=== PATIENT | female | born 1960 | race Caucasian/White ===

== ENCOUNTER 2017-01-29 12:40 | Emergency (ER) | payer OTHER ==
[~2017-01-29] VITALS: Ht 157.5 cm; Wt 132.9 kg
[~2017-01-29 12:40] MED LIST: ADVAIR 250/501 DISK IH; ADVIL,NUPRIN,M200 MG PO; ALBUTEROL2.5 MG/3 M IH; ATARAX,VISTARIL25 MG PO; BENZONATATE100 MG PO; CYMBALTA20 MG PO; DOXYCYCLINE HY100 M3 PO; METHADOSE10 MG/1 ML PO; MUCINEX600 MG PO; PREDNISONE10 MG PO; PROMETHAZINE HC25 M1 PO; SPIRIVA RESPIMAT4 GM IH; VENTOLIN HFA18 GM IH
[2017-01-29] MEDS ORDERED: BENADRYL25 MG PO (13:08)
[2017-01-29] MEDS ORDERED: SERTRALINE HCL100 MG PO (13:09)
[2017-01-29 13:51] LABS: CHLORIDE 96 mEq/L (99-109); POTASSIUM 4.3 mEq/L (3.7-5.4); SODIUM 143 mEq/L (136-147)
[2017-01-29 13:52] LABS: GLUCOSE 120 mg/dL (70-99)
[2017-01-29 13:54] LABS: ANION GAP 7 MEQ/L (2-14)
[2017-01-29 13:56] LABS: GFR ESTIMATE (CALCULATED) > 59 mL/min/
[2017-01-29 13:57] LABS: UREA NITROGEN (BUN) 13 mg/dL (9-23)
[2017-01-29 13:58] LABS: EOSINOPHIL (%) 0.9 % (0-5); EOSINOPHIL COUNT 0.1 K/uL (0-0.3); HEMATOCRIT 50.9 % (36.0-46.0); IMMATURE GRANULOCYTE (%) 0.5 % (0.0-0.7); INSTRUMENT ABS NEUTROPHIL CT 6.4 K/uL; LYMPHOCYTE COUNT 1.1 K/uL (1.0-2.8); MCHC 27.3 G/DL (30.0-36.0); MCV 91.7 FL (83-99); MEAN PLAT.VOLUME 10.9 uM^3 (9.5-12.4); MONOCYTE (%) 4.7 % (3-12); MONOCYTE COUNT 0.4 K/uL (0-0.8); NEUTROPHIL (%) 79.9 % (45-76); NEUTROPHIL COUNT 6.4 K/uL (1.8-6.4); PLATELET COUNT 194 K/uL (156-360); RBC DIS.WIDTH-CV 20.1 % (11.8-14.6); RBC DIS.WIDTH-SD 65.4 % (39-53); RED BLOOD COUNT 5.55 M/uL (3.80-5.20)
[2017-01-29] MEDS ORDERED: DOXYCYCLINE HY100 MG PO (17:27)
[2017-01-29 18:13] VITALS: BP 121/79
== END 2017-01-29 18:39 | disposition home or self-care (01) ==
LOC: EME 12:40
PROVIDERS: Physician Assistant
DX: N61.0 Mastitis without abscess (principal); J44.9 Chronic obstructive pulmonary disease, unspecified; M79.7 Fibromyalgia; B19.20 Unspecified viral hepatitis C without hepatic coma; M06.9 Rheumatoid arthritis, unspecified; M32.9 Systemic lupus erythematosus, unspecified; Z85.51 Personal history of malignant neoplasm of bladder; F17.200 Nicotine dependence, unspecified, uncomplicated
CPT/HCPCS: 80048; 83605; 85025; 94640; 94640 76; 99281; 99285; J7050

== ENCOUNTER 2017-03-19 16:26 | Inpatient (IN) | payer OTHER ==
[~2017-03-19] VITALS: Ht 157.5 cm; Wt 127.0 kg
[~2017-03-19 16:26] MED LIST changes: +BENADRYL25 MG PO; +DOXYCYCLINE HY100 MG PO; +SERTRALINE HCL100 MG PO
[2017-03-19 17:06] LABS: VENOUS PCO2 110 mm Hg (41-51)
[2017-03-19 17:09] LABS: CARBON DIOXIDE (BICARBONATE) > 40.0 MEQ/L (20-31)
[2017-03-19 17:19] LABS: CHLORIDE 92 mEq/L (99-109); POTASSIUM 4.5 mEq/L (3.7-5.4); SODIUM 143 mEq/L (136-147)
[2017-03-19 17:21] LABS: GLUCOSE 77 mg/dL (70-99)
[2017-03-19 17:22] LABS: ANION GAP 10 MEQ/L (2-14)
[2017-03-19 17:25] LABS: GFR ESTIMATE (CALCULATED) > 59 mL/min/
[2017-03-19 17:26] LABS: UREA NITROGEN (BUN) 11 mg/dL (9-23)
[2017-03-19 17:27] LABS: CREATINE KINASE 11 IU/L (1-294)
[2017-03-19 17:28] LABS: HEMATOCRIT 53.2 % (36.0-46.0); MCH 23.9 PG (29.0-34.0); MCHC 26.5 G/DL (30.0-36.0); MCV 90.3 FL (83-99); MEAN PLAT.VOLUME 11.2 uM^3 (9.5-12.4); NRBC (%) 0.7 /100 WBC (0-0); PLATELET COUNT 142 K/uL (156-360); RBC DIS.WIDTH-CV 22.1 % (11.8-14.6); RBC DIS.WIDTH-SD 69.9 % (39-53); RED BLOOD COUNT 5.89 M/uL (3.80-5.20); WHITE BLOOD COUNT 6.1 K/uL (4.1-10.2)
[2017-03-19 17:31] LABS: CARBON DIOXIDE (BICARBONATE) > 40.0 mEq/L (20-31)
[2017-03-19 17:32] LABS: TROP-I INTERPRETATION NEGATIVE; TROPONIN-I < 0.01 ng/mL (0.0-0.30)
[2017-03-19 18:21] LABS: D-DIMER ELISA 1.17 mg/L FEU (< 0.57); INTER. NORMALIZED RATIO 1.2; PTT 27.3 (25-32)
[2017-03-19] MEDS ORDERED: PROMETHAZINE HC25 M1 PO (18:35)
[2017-03-19] MEDS ORDERED: INCRUSE ELLI62.5 MCG IH (18:35)
[2017-03-19 19:06] LABS: BASE EXCESS 18.8 mEq/L (-3 to +3); BICARBONATE 52.6 mEq/L (22-26); CARBOXY HGB 9.2 % (0-5); COMMENTS - BLOOD GASES C+; DEVICE MASK VENT; FI02 45 %; METHEMOGLOBIN 1.2 % (0-1.5); PCO2 120 mm Hg (35-45); PO2 66 mm Hg (80-100); SITE RR; pH 7.25 (7.35-7.45)
[2017-03-19 19:07] LABS: MODE SPONT; PEEP 5 CM/H20; PRES. SUPPORT 12 CM/H2O; TOTAL RESP RATE 9 resp/min
[2017-03-19 20:52] VITALS: BP 141/52
[2017-03-19 21:00] VITALS: BP 115/64
[2017-03-19 22:00] VITALS: BP 142/62
[2017-03-19] MEDS ORDERED: BENADRYL25 MG PO (22:01)
[2017-03-19 22:50] LABS: BASE EXCESS 18.1 mEq/L (-3 to +3); BICARBONATE 50.7 mEq/L (22-26); CARBOXY HGB 8.4 % (0-5); METHEMOGLOBIN 1.6 % (0-1.5); PO2 70 mm Hg (80-100)
[2017-03-19 22:51] LABS: COMMENTS - BLOOD GASES A+C+; DEVICE 980; FI02 45 %; MODE SPONT; PCO2 108 mm Hg (35-45); SITE RR; pH 7.28 (7.35-7.45)
[2017-03-19 22:52] LABS: PEEP 5 CM/H20; PRES. SUPPORT 18 CM/H2O; TOTAL RESP RATE 13 resp/min
[2017-03-19 22:53] LABS: METH RESISTANT S AUREUS PCR NEGATIVE (NEGATIVE); PROBE CHECK PASS; SPECIMEN PROCESSING CONTROL PASS
[2017-03-19 23:00] VITALS: BP 94/72
[2017-03-20] VITALS (19 sets, daily range): BP systolic 89–136; BP diastolic 38–64
[2017-03-20 06:48] LABS: HEMATOCRIT 49.8 % (36.0-46.0); MCH 24.4 PG (29.0-34.0); MCHC 27.3 G/DL (30.0-36.0); MCV 89.2 FL (83-99); NRBC (%) 0.4 /100 WBC (0-0); RBC DIS.WIDTH-CV 21.8 % (11.8-14.6); RBC DIS.WIDTH-SD 68.8 % (39-53); RED BLOOD COUNT 5.58 M/uL (3.80-5.20); WHITE BLOOD COUNT 6.8 K/uL (4.1-10.2)
[2017-03-20 07:03] LABS: ALKALINE PHOSPHATASE 71 IU/L (3-129); ANION GAP 10 MEQ/L (2-14); CHLORIDE 92 MEQ/L (99-109); GFR ESTIMATE (CALCULATED) > 59 mL/min/; GLUCOSE 93 mg/dL (70-99); MAGNESIUM 2.1 mg/dl (1.3-2.7); POTASSIUM 4.8 MEQ/L (3.7-5.4); SAMPLE HEMOLYSIS CHECK 0; SAMPLE ICTERIC CHECK 0; SAMPLE LIPEMIA CHECK 0; SODIUM 142 MEQ/L (136-147); TOTAL BILIRUBIN 0.6 MG/DL (0.0-1.0); UREA NITROGEN (BUN) 12 mg/dL (9-23)
[2017-03-20 07:18] LABS: BASE EXCESS 18.1 mEq/L (-3 to +3); BICARBONATE 48.6 mEq/L (22-26); CARBOXY HGB 5.8 % (0-5); METHEMOGLOBIN 1.4 % (0-1.5); PO2 71 mm Hg (80-100); pH 7.35 (7.35-7.45)
[2017-03-20 07:19] LABS: COMMENTS - BLOOD GASES +C; CONTINUOUS POS AIRWAY PRESSURE 4 cm H2O; DEVICE PB980; FI02 50 %; MODE NIV; PCO2 88 mm Hg (35-45); PRES. SUPPORT 18 CM/H2O; SITE RR +A; TOTAL RESP RATE 8 resp/min
[2017-03-20 07:39] LABS: PLAT.SUFFICIENCY DECREASED; PLATELET COUNT 136 K/uL (156-360)
[2017-03-21] VITALS (7 sets, daily range): BP systolic 111–136; BP diastolic 54–65
[2017-03-22] VITALS (7 sets, daily range): BP systolic 117–151; BP diastolic 58–70
[2017-03-23] VITALS: BP 117/56
[2017-03-23 04:40] VITALS: BP 124/72
[2017-03-23 06:49] LABS: ANION GAP ND MEQ/L (2-14); CHLORIDE 96 MEQ/L (99-109); GFR ESTIMATE (CALCULATED) > 59 mL/min/; GLUCOSE 144 mg/dL (70-99); POTASSIUM 5.1 MEQ/L (3.7-5.4); SAMPLE HEMOLYSIS CHECK 0; SAMPLE ICTERIC CHECK 0; SAMPLE LIPEMIA CHECK 0; SODIUM 143 MEQ/L (136-147); UREA NITROGEN (BUN) 19 mg/dL (9-23)
[2017-03-23 06:50] LABS: CARBON DIOXIDE (BICARBONATE) > 40.0 MEQ/L (20-31)
[2017-03-23 07:17] LABS: EOSINOPHIL (%) 0 % (0-5); HEMATOCRIT 48.9 % (36.0-46.0); IMMATURE GRANULOCYTE (%) 0.3 % (0.0-0.7); INSTRUMENT ABS NEUTROPHIL CT 8.3 K/uL; LYMPHOCYTE COUNT 0.3 K/uL (1.0-2.8); MCH 23.9 PG (29.0-34.0); MCHC 26.6 G/DL (30.0-36.0); MCV 89.7 FL (83-99); MEAN PLAT.VOLUME 11.4 uM^3 (9.5-12.4); MONOCYTE (%) 5.4 % (3-12); MONOCYTE COUNT 0.5 K/uL (0-0.8); NEUTROPHIL (%) 90.7 % (45-76); NEUTROPHIL COUNT 8.3 K/uL (1.8-6.4); NRBC (%) 0.3 /100 WBC (0-0); PLATELET COUNT 135 K/uL (156-360); RBC DIS.WIDTH-CV 21.6 % (11.8-14.6); RBC DIS.WIDTH-SD 69.5 % (39-53); RED BLOOD COUNT 5.45 M/uL (3.80-5.20)
[2017-03-23 07:18] LABS: WHITE BLOOD COUNT 9.2 K/uL (4.1-10.2)
[2017-03-23 08:35] VITALS: BP 134/70
[2017-03-23 11:05] VITALS: BP 130/63
[2017-03-23 16:24] VITALS: BP 132/72
[2017-03-23 19:20] VITALS: BP 126/54
[2017-03-24] VITALS (7 sets, daily range): BP systolic 108–123; BP diastolic 52–59
[2017-03-24 05:24] LABS: CHLORIDE 98 mEq/L (99-109); POTASSIUM 4.5 mEq/L (3.7-5.4); SODIUM 142 mEq/L (136-147)
[2017-03-24 05:26] LABS: GLUCOSE 154 mg/dL (70-99)
[2017-03-24 05:27] LABS: ANION GAP 6 MEQ/L (2-14)
[2017-03-24 05:30] LABS: GFR ESTIMATE (CALCULATED) > 59 mL/min/
[2017-03-24 05:31] LABS: UREA NITROGEN (BUN) 15 mg/dL (9-23)
[2017-03-25 04:45] VITALS: BP 132/57
[2017-03-25 09:00] VITALS: BP 124/58
[2017-03-25 12:00] VITALS: BP 123/62
[2017-03-25 15:49] VITALS: BP 115/56
[2017-03-25 19:40] VITALS: BP 118/55
[2017-03-26 00:16] VITALS: BP 132/61
[2017-03-26 04:30] VITALS: BP 122/56
[2017-03-26 09:00] VITALS: BP 122/59
[2017-03-26 10:16] LABS: ADD MIUA? NO; BILIRUBIN NEGATIVE; BLOOD NEGATIVE; COLOR YELLOW ((YELLOW)); GLUCOSE (STRIP) NEGATIVE; KETONES NEGATIVE; LEUKOCYTES NEGATIVE; NITRITE NEGATIVE; PROTEIN (STRIP) NEGATIVE; SPECIFIC GRAVITY 1.011 (1.000-1.030)
[2017-03-26 12:00] VITALS: BP 121/56
[2017-03-26 19:15] VITALS: BP 133/74
[2017-03-26 23:32] VITALS: BP 137/60
[2017-03-27 03:37] VITALS: BP 115/63
[2017-03-27 06:15] LABS: HEMATOCRIT 47.2 % (36.0-46.0); MCH 24.7 PG (29.0-34.0); MCV 88.2 FL (83-99); RBC DIS.WIDTH-CV 21.8 % (11.8-14.6); RED BLOOD COUNT 5.35 M/uL (3.80-5.20); WHITE BLOOD COUNT 9.6 K/uL (4.1-10.2)
[2017-03-27 06:31] LABS: PLATELET COUNT 113 K/uL (156-360)
[2017-03-27 06:39] LABS: ANION GAP 5 MEQ/L (2-14); CHLORIDE 101 MEQ/L (99-109); GFR ESTIMATE (CALCULATED) > 59 mL/min/; GLUCOSE 69 mg/dL (70-99); POTASSIUM 3.9 MEQ/L (3.7-5.4); SAMPLE HEMOLYSIS CHECK 0; SAMPLE ICTERIC CHECK 0; SAMPLE LIPEMIA CHECK 0; SODIUM 143 MEQ/L (136-147); UREA NITROGEN (BUN) 15 mg/dL (9-23)
[2017-03-27 07:18] LABS: PLAT.SUFFICIENCY DECREASED
[2017-03-27 08:04] VITALS: BP 123/62
[2017-03-27] MEDS ORDERED: PREDNISONE10 MG PO (11:09)
[2017-03-27] MEDS ORDERED: LOVENOX40 MG/0.4 SC (14:16)
== END 2017-03-27 17:12 | DRG 189 ==
LOC: EME → EDBD 16:26 → EME 16:26 → 4EAST 19:17 → 4WEST 19:17 → EDOF 19:17 → 4WEST 20:29 → 4EAST 03-22 01:03
PROVIDERS: Emergency Medicine; Internal Medicine; Internal Medicine Critical Care Medicine
DX: J96.22 Acute and chronic respiratory failure with hypercapnia (principal); E87.3 Alkalosis; E87.8 Other disorders of electrolyte and fluid balance, not elsewhere classified; E87.2 Acidosis; J44.1 Chronic obstructive pulmonary disease with (acute) exacerbation; F11.20 Opioid dependence, uncomplicated; M32.9 Systemic lupus erythematosus, unspecified; Z85.51 Personal history of malignant neoplasm of bladder; G89.4 Chronic pain syndrome; F17.210 Nicotine dependence, cigarettes, uncomplicated; S82.141D Displaced bicondylar fracture of right tibia, subsequent encounter for closed fracture with routine healing; X58.XXXD Exposure to other specified factors, subsequent encounter; Z99.81 Dependence on supplemental oxygen; E66.01 Morbid (severe) obesity due to excess calories; Z68.43 Body mass index [BMI] 50.0-59.9, adult; B19.20 Unspecified viral hepatitis C without hepatic coma; M79.7 Fibromyalgia; G47.33 Obstructive sleep apnea (adult) (pediatric); Z96.651 Presence of right artificial knee joint; R09.02 Hypoxemia
CPT/HCPCS: 36600; 71010; 73560; 73590; 73610; 80048; 80053; 81003; 82550; 82803; 83735; 83880; 84100; 84484; 85025; 85027; 85379; 85610; 85730; 87040; 87641; 93005; 93971; 94002; 94003; 94640; 94640 76; 94760; 94799; 97530 GO; 97530 GP; 99202; 99281; 99285; J0456; J1650; J2920; J2930; J3475; J7030; J7512; Q0169